=== PATIENT | female | born 1965 | race Caucasian/White ===

== ENCOUNTER 2017-03-26 21:16 | Emergency (ER) | payer BC ==
[~2017-03-26] VITALS: Ht 162.6 cm; Wt 68.9 kg
[2017-03-26 21:21] VITALS: TEMP 36.8; Ht 162.6 cm; Wt 68.9 kg
[2017-03-26] MEDS ORDERED: PRLSR20 PO (21:56)
[2017-03-26] MEDS ORDERED: ASPI-390 PO (21:56)
[2017-03-26] MEDS ORDERED: IBUP-1050 PO (21:56)
[2017-03-26] MEDS ORDERED: SODIUM CHLORIDE 0.9% 1000ML 1,000 ML IV STA (22:35)
--- NOTE | 2017-03-26 22:39 | EMERGENCY ROOM VISIT NOTE ---
History Report prepared by Adithya: Cecilio Kaplan Under the Supervision of: Dr. Jacques Camp M.D. First contact with patient: 22:27 Chief Complaint: ED VAG BLEEDING Stated Complaint: HEAVY VAGINAL BLEEDING- [facility] REFERRED History of Present Illness The patient is a 52 year old female who presents to the Emergency Room with complaints of persistent vaginal bleeding that started 13 days ago. The patient reports having to murphy to the bathroom every 30 minutes to change her pad. Associated symptoms include swelling of left foot and light headedness. The patient reports being sent here by [facility] because they were unable to draw her blood. She has a history of irregular menstrual cycles and fibroid. She states that her last period was in January. She denies experiencing a period this heavy in the past. Patient also denies abdominal pain, urinary symptoms, or any additional associated symptoms. The patient does not currently have an OBGYN. Source of History: patient Onset: 13 days ago Position: other (Vagina ) Quality: other (Bleeding) Timing: other (Persistent ) Modifying Factors (Relieving): other (None) Associated Symptoms: No abdominal pain, No urinary symptoms Note: Associated symptoms include light headedness and swelling of left foot. Review of Systems See HPI for pertinent positives & negatives. A total of 6 systems reviewed and were otherwise negative. Past Medical & Surgical Medical Problems: (1) Asthma, exercise induced (2) Gastric ulcer (3) Uterine fibroid Family History FH: diabetes mellitus FHx: cancer Social History Smoking Status: Never Smoker Alcohol Use: none Drug Use: none Marital Status: Housing Status: lives with significant other Occupation Status: employed Current/Historical Medications Scheduled Norethindrone Acetate (Aygestin), 5 MG PO DIRECTED Scheduled PRN Sdpvfae-Dvaiypmwflzre-Kuvcrrvt (Excedrin Migraine), 1 TAB PO Q12 PRN for Migraine Ibuprofen (Advil), 200-600 MG PO Q4H PRN for Pain Omeprazole (Prilosec), 20-40 MG PO DAILY PRN for PRN Allergies Coded Allergies: Penicillins (Unverified Allergy, Unknown, HIVES, 03/26/17) Physical Exam Vital Signs Date Time Temp Pulse Resp B/P Pulse Ox O2 Delivery O2 Flow Rate FiO2 03/27/17 00:45 93 16 111/75 97 03/26/17 23:20 89 18 99/58 98 Room Air 03/26/17 21:21 36.8 93 18 136/86 100 Room Air Physical Exam GENERAL: Patient is well appearing and in no acute distress. HEENT: No acute trauma, normocephalic atraumatic, mucous membranes moist, no nasal congestion, no scleral icterus. NECK: No stridor, no adenopathy, no meningismus, trachea is midline. LUNGS: No dyspnea. Clear to auscultation and equal bilaterally. No wheeze, no rhonchi. HEART: Regular rate and rhythm. No murmurs, rubs, gallops appreciated. ABDOMEN: Soft, nontender, bowel sounds positive, no masses appreciated, no peritonitis. PELVIC: Mild amount of blood in vaginal vault, mild bleeding from os, nontender adnexa, clitoris piercing noted. EXTREMITIES: Normal motion all extremities, no cyanosis, no edema. NEUROLOGIC: Alert and oriented, no acute motor or sensory deficits, no focal weakness, cranial nerves grossly intact. SKIN: No rash, no jaundice, no diaphoresis. Medical Decision & Procedures Laboratory Results 03/26/17 22:47 Test 03/26/17 22:10 03/26/17 22:40 03/26/17 22:47 Urine Test NEG (NEG) Urine Color ORANGE Urine Appearance CLOUDY (CLEAR) Urine pH 5.0 (4.5-7.5) Urine Specific [place] 1.032 (1.000-1.030) Urine Protein 1+ (NEG) Urine Glucose (UA) NEG (NEG) Urine Ketones NEG (NEG) Urine Occult Blood 3+ (NEG) Urine Nitrite NEG (NEG) Urine Bilirubin NEG (NEG) Urine Urobilinogen NEG (NEG) Urine Leukocyte Esterase TRACE (NEG) Urine WBC (Auto) 1-5 /hpf (0-5) Urine RBC (Auto) >30 /hpf (0-4) Urine Hyaline Casts (Auto) 1-5 /lpf (0-5) Urine Epithelial Cells (Auto) >30 /lpf (0-5) Urine Bacteria (Auto) NEG (NEG) Red Blood Count 3.85 M/uL (4.2-5.4) Mean Corpuscular Volume 91.7 fL (80-100) Mean Corpuscular Hemoglobin 30.1 pg (25-34) Mean Corpuscular Hemoglobin Concent 32.9 g/dl (32-36) RDW Standard Deviation 46.6 fL (36.4-46.3) RDW Coefficient of Variation 13.9 % (11.5-14.5) Mean Platelet Volume 8.8 fL (7.4-10.4) Laboratory results as reviewed by me. Medications Administered Medications (Trade) Dose Ordered Sig/Laurie Route Start Time Stop Time Status Last Admin Dose Admin Sodium Chloride (Nss 1000ml) 1,000 ml @ 999 mls/hr Q1H1M STAT IV 03/26/17 22:35 03/26/17 23:35 DC 03/26/17 23:22 999 MLS/HR Norethindrone Acetate (Aygestin Tab) 2 mg NOW STAT PO 03/26/17 23:11 03/27/17 00:02 DC 03/27/17 00:00 5 MG Norethindrone Acetate (Aygestin Tab) 10 mg NOW STAT PO 03/27/17 00:00 03/27/17 00:02 DC 03/27/17 00:29 5 MG ED Course 2228: The patient was evaluated in room B10. A complete history and physical exam was performed. 2235: Ordered Sodium Chloride 1,000 ml @ 999 mls/hr IV. 2308:I discussed the patient's case with Dr. Kimball (OBGYN). She will follow up with the patient in the outpatient office. 2311: Ordered Aygestin Tablet 2 mg PO. 2330: I performed a pelvic exam on the patient with and mechanical system technician in room. Please see physical exam notes. 2348: test is negative. 0000: Ordered Aygestin Tablet 10 mg PO. 0005: Reevaluated the patient. Discussed results and discharge instructions: She verbalized understanding and agreement. The patient is ready for discharge. She will follow up with Dr. Kimball (OBGYN). Medical Decision Differential: Menstrual Bleeding, Dysfunctional Uterine Bleeding, Infectious, Ectopic , Bleeding Dyscrasia, amongst other pathologies entertained. 52 yr old female arrives with complaint of heavy vaginal bleeding over the last ~2 weeks. Mild anemia with some orthostatic symptoms. Given IV fluids though does not require transfusion at this time. Pelvic consistent with blood in vaginal vault though no evidence overt hemorrhage. She does not require emergent surgical evaluation. She is stable and negative. No UTI symptoms. No evidence PID/TOA. No history of bleeding disorder. Reviewed with Pasteurizing Supervisor who had me start Aygestin which seems reasonable in this patient. Aware RTED if worsening or other concerns. Discussed course of Aygestin and likelihood some bleeding at end of course. She has not seen Pasteurizing Supervisor in quite some time and I have very much stressed this is important to have done as soon as possible. Aware the exam did not include pap/sti screening. Consults Time Called: [phone] Consulting Physician: Dr. Kimball (OBGYN) Returned Call: [phone] I discussed the patient's case with Dr. Kimball (OBGYN). She will follow up with the patient in the outpatient office. Impression Primary Impression: Excessive vaginal bleeding Additional Impression: Anemia Scribe Attestation The scribe's documentation has been prepared under my direction and personally reviewed by me in its entirety. I confirm that the note above accurately reflects all work, treatment, procedures, and medical decision making performed by me. Departure Information Dispostion Home / Self-Care Prescriptions Norethindrone Acetate (AYGESTIN) 5 Mg Tab 5 MG PO DIRECTED, #15 TAB Take 2 tablets twice daily for 1 day, then one table twice daily for 3 days, then 1 tablet daily for 3 days. Prov: Jacques Camp M.D. 03/26/17 Referrals Arlene Kimball MD Forms HOME CARE DOCUMENTATION FORM, IMPORTANT VISIT INFORMATION, WORK / SCHOOL INSTRUCTIONS Patient Instructions ED Bleed Irregular Vaginal, [facility] Health Problem Qualifiers Additional Impression: Anemia Anemia type: unspecified type Qualified Codes: D64.9 - Anemia, unspecified
[2017-03-26 22:58] LABS: HEMATOCRIT 35.3 % (37-47); MEAN CELL VOLUME 91.7 fL (80-100); MEAN CORPUSCULAR HEMOGLOBIN 30.1 pg (25-34); MEAN CORPUSCULAR HGB CONC 32.9 g/dl (32-36); MEAN PLATELET VOLUME 8.8 fL (7.4-10.4); PLATELET COUNT 317 K/uL (130-400); RED BLOOD COUNT 3.85 M/uL (4.2-5.4); WHITE BLOOD COUNT 9.15 K/uL (4.8-10.8)
[2017-03-26] MEDS ORDERED: [UNRECOGNIZED DRUG - CODE] PO (23:15)
[2017-03-26] MEDS: NORETHINDRONE ACETATE 5 MG TAB PO STA (23:59)
[2017-03-27] MEDS: NORETHINDRONE ACETATE 5 MG TAB PO STA
[2017-03-27] MEDS ORDERED: NORETHINDRONE ACETATE 5 MG TAB PO STA
[2017-03-27 00:42] LABS: URINE APPEARANCE CLOUDY (CLEAR); URINE BILIRUBIN NEG (NEG); URINE COLOR ORANGE; URINE EPITHELIAL CELL AUTO >30 /lpf (0-5); URINE NITRITE NEG (NEG); URINE SPECIFIC GRAVITY 1.032 (1.000-1.030); UROBILINOGEN NEG (NEG)
[2017-03-27 00:43] LABS: MANUAL MICROSCOPIC REQUIRED? NO; REVIEW REQ? NO; ZZUR CULT IF INDIC CLEAN CATCH NO
[2017-03-27 00:45] VITALS: BP 111/75; PULSE 93; O2SAT 97
== END 2017-03-27 00:45 | disposition home or self-care (01) ==
LOC: C.EDB 21:18 → EDSEX 21:18 → C.EDB 03-27 00:45
DX: N93.9 Abnormal uterine and vaginal bleeding, unspecified (principal); D64.9 Anemia, unspecified; J45.909 Unspecified asthma, uncomplicated; K25.9 Gastric ulcer, unspecified as acute or chronic, without hemorrhage or perforation; D25.9 Leiomyoma of uterus, unspecified; Z83.3 Family history of diabetes mellitus; Z80.9 Family history of malignant neoplasm, unspecified

== ENCOUNTER → 2017-04-17 | Outpatient (CLI) | payer BC ==
[~2017-04-17] MED LIST: ASPI-390 PO; IBUP-1050 PO; PRLSR20 PO; [UNRECOGNIZED DRUG - CODE] PO
== END | disposition home or self-care (01) ==
LOC: C.PATH 15:44
PROVIDERS: ATTEND Obstetrics & Gynecology
DX: N85.8 Other specified noninflammatory disorders of uterus (principal)

== ENCOUNTER 2021-11-29 13:19 | Inpatient (IN) ==
[2021-11-29] MEDS ORDERED: dexAMETHasone**PF** 10 MG/ML VIAL IV ONE (13:46)
--- NOTE | 2021-11-29 13:53 | Emergency Department Note ---
Impression & Plan Pneumonia due to 2019-nCoV, Hypoxia ED Provider Note NAME: AMY ZHU AGE: 56 SEX: F : 1965 ARRIVES VIA: Walk-In INFORMANT: Patient, ED PROVIDER(S): Sean Meyer DO CHIEF COMPLAINT: Cough HPI: The patient is a 56-year-old female who presented to emergency department for an evaluation of difficulty breathing cough and fatigue. She has noticed sinus congestion as well. The patient was having symptoms of COVID-19 since approximately November 16. She was tested and was positive at home. She is on no medications for COVID-19. She is currently not taking any steroids. She also notices a cough that is productive for brownish sputum. She denies having any specific chest pain or lower extremity swelling. She denies having any abdominal pain or vomiting. She called her family doctor and had a phone visit with the office. The patient is not vaccinated against COVID-19 ROS: See above HPI for pertinent positives & negatives. A total of 10 systems reviewed and were otherwise negative. PAST MEDICAL HISTORY: See Below PAST SURGICAL HISTORY: See Below FAMILY HISTORY: See Below SOCIAL HISTORY: See Below HOME MEDICATIONS: See Below ALLERGIES: See Below VITALS: See Below PHYSICAL EXAMINATION: GENERAL: Patient is awake alert in no acute distress patient is resting comfortably and showing no signs of anxiety EYES: The conjunctivae are clear. The pupils are round and reactive. EARS, NOSE, MOUTH AND THROAT: The nose is without any evidence of any deformity. Mucous membranes are moist. Tongue is midline. NECK: The neck is nontender and supple. RESPIRATORY: Diminished breath sounds are noted throughout with scattered rales. There is mild conversational dyspnea. CARDIOVASCULAR: Regular rate and rhythm noted there no murmurs rubs or gallops normal S1 normal S2. GASTROINTESTINAL: The abdomen is soft. Abdomen is nontender. MUSCULOSKELETAL/EXTREMITIES: There is no evidence of gross deformity full range of motion is noted in the hips and shoulders. SKIN: There is no obvious evidence of any rash. There are no petechiae, pallor or cyanosis noted. NEUROLOGIC: Patient is awake alert and oriented x3 MEDICAL DECISION MAKING: The patient is a 56-year-old female who presented to emergency department for an evaluation of difficulty breathing and cough. The patient is unvaccinated and was exposed to COVID-19. The patient had a positive Covid swab and a chest x- ray consistent with COVID-19. I discussed the patient's laboratory and radiographic studies with her. Because of her hypoxia she was treated with IV Decadron. I discussed her case with the on-call [facility]. They have agreed to evaluate the patient in the emergency department for further management and disposition. Triage Nursing notes reviewed. Prior medical records reviewed Vital Signs: reviewed and remarkable for hypoxia. Differential diagnosis: Reactive airway disease, pneumonia, pneumothorax, COPD, CHF, infections, cardiac ischemia, pulmonary embolism, musculoskeletal, gastrointestinal, as well as other pathologies. ER treatment provided: See below Diagnostics interpreted by me: ECG: EKG was obtained in the emergency department. My interpretation is normal sinus rhythm at 77 bpm. There is no ectopy. There is no acute ST segment abnormalities noted. No previous tracing was available. Cardiac Monitoring: An order was placed for continuous cardiac monitoring. The m onitor shows a rate of 87 bpm with sinus rhythm. Laboratory studies: As stated above and show below. Imaging studies: See below Consultation(s): I discussed this case with Dr. Whitaker who is on-call for [facility] hospitalist group. They will evaluate the patient in the emergency department. Past Med/Surg History Medical History Adult hypothyroidism Gastric ulcer Menorrhagia Postmenopausal bleeding 2020- post biopsy negative for malignancy Screening for lipid disorders Sinus infection Varicella Surgical History No pertinent past surgical history Family History Mother Fibrocystic breast Father Pancreatic cancer Denies family history of Ovarian cancer Myocardial infarction Breast cancer Colorectal cancer Uterus cancer Social History Smoking Status: Never smoker Hx Alcohol Use: Yes Hx Substance Use: No Preferred Language: Ugandan Communication Ability: Effective Visual Impairment: No Limitations Hearing Ability: Normal Director Of Hotel Operations Required: No marital status: Current Living Situation: Spouse Feels Safe at Home: Yes Physical Activity Frequency: 3-4 Times per Week Seatbelt Use: always Sunscreen Use: Yes Allergies Allergies Allergy/AdvReac Type Severity Reaction Status Date / Time Penicillins Allergy Unknown HIVES Verified 11/29/21 15:25 Home Meds Previous Rx's Medication Instructions Recorded levothyroxine 50 mcg tablet 50 mcg PO DAILY #90 tab 06/14/21 Results & Data (ED) Vital Signs Vital Signs - 24 hr 11/29/21 13:40 11/29/21 14:54 11/29/21 15:09 Temperature 36.8 C Temperature Source Temporal Artery Scan Pulse Rate 85 68 81 Pulse Rate [Apical] 68 Pulse Rate from SpO2 Sensor 81 Pulse Rhythm Regular Pulse Rhythm [Apical] Regular Respiratory Rate 22 18 20 Respiratory Effort / Characteristics Non-Labored Spontaneous Non-Labored Spontaneous Respiratory Depth Normal Normal Respiratory Pattern Regular Regular Blood Pressure 106/67 Blood Pressure [Left Arm] 102/61 Blood Pressure Mean 80 Blood Pressure Mean [Left Arm] 74 Blood Pressure Position [Left Arm] Semi-fowlers Pulse Oximetry 84 L 96 98 Oxygen Delivery Method Room Air Nasal Cannula Oxygen Flow Rate 2 Sepsis Recent Fever Within 48 Hours No Sepsis New/Unexplained Change in Mental Status No Sepsis Action Taken by Nursing No Action Required Oxygen Flow Rate - Titration 4 Pulse Oximetry Post Tiitration 93 11/29/21 15:30 11/29/21 15:37 11/29/21 16:00 Temperature Temperature Source Pulse Rate 82 89 Pulse Rate [Apical] Pulse Rate from SpO2 Sensor 82 89 Pulse Rhythm Pulse Rhythm [Apical] Respiratory Rate 28 H 21 Respiratory Effort / Characteristics Respiratory Depth Respiratory Pattern Blood Pressure 111/71 106/68 Blood Pressure [Left Arm] Blood Pressure Mean 84 80 Blood Pressure Mean [Left Arm] Blood Pressure Position [Left Arm] Pulse Oximetry 92 91 92 Oxygen Delivery Method Room Air Room Air Oxygen Flow Rate Sepsis Recent Fever Within 48 Hours Sepsis New/Unexplained Change in Mental Status Sepsis Action Taken by Nursing Oxygen Flow Rate - Titration Pulse Oximetry Post Tiitration 11/29/21 16:30 11/29/21 17:00 11/29/21 17:30 Temperature Temperature Source Pulse Rate 85 89 94 H Pulse Rate [Apical] Pulse Rate from SpO2 Sensor 85 88 94 H Pulse Rhythm Pulse Rhythm [Apical] Respiratory Rate 15 16 19 Respiratory Effort / Characteristics Respiratory Depth Respiratory Pattern Blood Pressure 99/59 L 94/64 L 106/72 Blood Pressure [Left Arm] Blood Pressure Mean 72 74 83 Blood Pressure Mean [Left Arm] Blood Pressure Position [Left Arm] Pulse Oximetry 93 93 92 Oxygen Delivery Method Oxygen Flow Rate Sepsis Recent Fever Within 48 Hours Sepsis New/Unexplained Change in Mental Status Sepsis Action Taken by Nursing Oxygen Flow Rate - Titration Pulse Oximetry Post Tiitration 11/29/21 18:00 11/29/21 18:30 Temperature Temperature Source Pulse Rate 93 H 87 Pulse Rate [Apical] Pulse Rate from SpO2 Sensor 93 H 88 Pulse Rhythm Pulse Rhythm [Apical] Respiratory Rate 19 21 Respiratory Effort / Characteristics Respiratory Depth Respiratory Pattern Blood Pressure 114/72 102/69 Blood Pressure [Left Arm] Blood Pressure Mean 86 80 Blood Pressure Mean [Left Arm] Blood Pressure Position [Left Arm] Pulse Oximetry 92 94 Oxygen Delivery Method Oxygen Flow Rate Sepsis Recent Fever Within 48 Hours Sepsis New/Unexplained Change in Mental Status Sepsis Action Taken by Nursing Oxygen Flow Rate - Titration Pulse Oximetry Post Tiitration Home Medications Current Medication List: was personally reviewed by me Laboratory Data Attestation: I reviewed the patient's lab results. Result diagrams: 11/29/21 13:49 11/29/21 13:49 Lab Results 11/29/21 11/29/21 11/29/21 Range/Units 13:49 13:49 13:49 WBC 11.90 H (4.8-10.8) K/uL RBC 4.30 (4.2-5.4) M/uL Hgb 13.1 (12.0-16.0) g/dL Hct 38.5 (37-47) % MCV 89.5 (80-100) fL MCH 30.5 (25-34) pg MCHC 34.0 (32-36) g/dL RDW Std Deviation 48.7 H (36.4-46.3) fL RDW Coeff of Sydnie 14.8 H (11.5-14.5) % Plt Count 389 (130-400) K/uL MPV 8.5 (7.4-10.4) fL Immature Gran % (Auto) 0.8 % Neut % (Auto) 78.7 % Lymph % (Auto) 15.4 % Boundary % (Auto) 4.7 % Eos % (Auto) 0.2 % Baso % (Auto) 0.2 % Neut # (Auto) 9.37 H (1.4-6.5) K/uL Lymph # (Auto) 1.83 (1.2-3.4) K/uL Boundary # (Auto) 0.56 (0.11-0.59) K/uL Eos # (Auto) 0.02 (0-0.5) K/uL Baso # (Auto) 0.02 (0-0.2) K/uL Immature Gran # (Auto) 0.10 H (0.00-0.02) K/uL ESR 55 H (0-30) mm/hr PT 9.7 (9.0-12.0) Seconds INR 1.0 (0.9-1.1) APTT 29.9 (21.0-31.0) Seconds PTT Ratio 1.1 Sodium (136-145) mmol/L Potassium (3.5-5.1) mmol/L Chloride (98-107) mmol/L Carbon Dioxide (21-32) mmol/L Anion Gap (3-11) BUN (7-18) mg/dl Creatinine (0.6-1.2) mg/dl Est Cr Clr Drug Dosing Est GFR ( Amer) ml/min Est GFR (Non-Af Amer) ml/min BUN/Creatinine Ratio (10-20) Glucose (70-99) mg/dl Lactate (0.4-2.0) mmol/L Calcium (8.5-10.1) mg/dl Magnesium (1.8-2.4) mg/dl Total Bilirubin (0.2-1) mg/dl AST (15-37) U/L ALT (12-78) Alkaline Phosphatase (45-117) U/L Troponin I (0-0.045) ng/ml C-Reactive Protein (0-0.29) mg/dl Total Protein (6.4-8.2) gm/dl Albumin (3.4-5.0) gm/dl Globulin (2.5-4.0) gm/dl Albumin/Globulin Ratio (0.9-2) Procalcitonin (0-0.5) ng/ml Specimen Hemolysis SARS-CoV-2 (PCR) (Negative) Influenza Type A (PCR) (Neg) Influenza Type B (PCR) (Neg) RSV (RT-PCR) (Neg) 11/29/21 11/29/21 11/29/21 Range/Units 13:49 13:58 13:58 WBC (4.8-10.8) K/uL RBC (4.2-5.4) M/uL Hgb (12.0-16.0) g/dL Hct (37-47) % MCV (80-100) fL MCH (25-34) pg MCHC (32-36) g/dL RDW Std Deviation (36.4-46.3) fL RDW Coeff of Sydnie (11.5-14.5) % Plt Count (130-400) K/uL MPV (7.4-10.4) fL Immature Gran % (Auto) % Neut % (Auto) % Lymph % (Auto) % Boundary % (Auto) % Eos % (Auto) % Baso % (Auto) % Neut # (Auto) (1.4-6.5) K/uL Lymph # (Auto) (1.2-3.4) K/uL Boundary # (Auto) (0.11-0.59) K/uL Eos # (Auto) (0-0.5) K/uL Baso # (Auto) (0-0.2) K/uL Immature Gran # (Auto) (0.00-0.02) K/uL ESR (0-30) mm/hr PT (9.0-12.0) Seconds INR (0.9-1.1) APTT (21.0-31.0) Seconds PTT Ratio Sodium 138 (136-145) mmol/L Potassium 3.4 L (3.5-5.1) mmol/L Chloride 104 (98-107) mmol/L Carbon Dioxide 29 (21-32) mmol/L Anion Gap 5.0 (3-11) BUN 9 (7-18) mg/dl Creatinine 0.59 L (0.6-1.2) mg/dl Est Cr Clr Drug Dosing Not Reportable Est GFR ( Amer) 120.4 ml/min Est GFR (Non-Af Amer) 103.9 ml/min BUN/Creatinine Ratio 14.6 (10-20) Glucose 109 H (70-99) mg/dl Lactate 1.4 (0.4-2.0) mmol/L Calcium 8.4 L (8.5-10.1) mg/dl Magnesium 2.4 (1.8-2.4) mg/dl Total Bilirubin 0.3 (0.2-1) mg/dl AST 65 H (15-37) U/L ALT 47 (12-78) Alkaline Phosphatase 113 (45-117) U/L Troponin I < 0.015 (0-0.045) ng/ml C-Reactive Protein 14.60 H (0-0.29) mg/dl Total Protein 7.0 (6.4-8.2) gm/dl Albumin 2.7 L (3.4-5.0) gm/dl Globulin 4.3 H (2.5-4.0) gm/dl Albumin/Globulin Ratio 0.6 L (0.9-2) Procalcitonin 0.08 (0-0.5) ng/ml Specimen Hemolysis SARS-CoV-2 (PCR) (Negative) Influenza Type A (PCR) (Neg) Influenza Type B (PCR) (Neg) RSV (RT-PCR) (Neg) 11/29/21 Range/Units 14:06 WBC (4.8-10.8) K/uL RBC (4.2-5.4) M/uL Hgb (12.0-16.0) g/dL Hct (37-47) % MCV (80-100) fL MCH (25-34) pg MCHC (32-36) g/dL RDW Std Deviation (36.4-46.3) fL RDW Coeff of Sydnie (11.5-14.5) % Plt Count (130-400) K/uL MPV (7.4-10.4) fL Immature Gran % (Auto) % Neut % (Auto) % Lymph % (Auto) % Boundary % (Auto) % Eos % (Auto) % Baso % (Auto) % Neut # (Auto) (1.4-6.5) K/uL Lymph # (Auto) (1.2-3.4) K/uL Boundary # (Auto) (0.11-0.59) K/uL Eos # (Auto) (0-0.5) K/uL Baso # (Auto) (0-0.2) K/uL Immature Gran # (Auto) (0.00-0.02) K/uL ESR (0-30) mm/hr PT (9.0-12.0) Seconds INR (0.9-1.1) APTT (21.0-31.0) Seconds PTT Ratio Sodium (136-145) mmol/L Potassium (3.5-5.1) mmol/L Chloride (98-107) mmol/L Carbon Dioxide (21-32) mmol/L Anion Gap (3-11) BUN (7-18) mg/dl Creatinine (0.6-1.2) mg/dl Est Cr Clr Drug Dosing Est GFR ( Amer) ml/min Est GFR (Non-Af Amer) ml/min BUN/Creatinine Ratio (10-20) Glucose (70-99) mg/dl Lactate (0.4-2.0) mmol/L Calcium (8.5-10.1) mg/dl Magnesium (1.8-2.4) mg/dl Total Bilirubin (0.2-1) mg/dl AST (15-37) U/L ALT (12-78) Alkaline Phosphatase (45-117) U/L Troponin I (0-0.045) ng/ml C-Reactive Protein (0-0.29) mg/dl Total Protein (6.4-8.2) gm/dl Albumin (3.4-5.0) gm/dl Globulin (2.5-4.0) gm/dl Albumin/Globulin Ratio (0.9-2) Procalcitonin (0-0.5) ng/ml Specimen Hemolysis SARS-CoV-2 (PCR) POSITIVE A* (Negative) Influenza Type A (PCR) Negative (Neg) Influenza Type B (PCR) Negative (Neg) RSV (RT-PCR) Negative (Neg) Administered Medications Ceftriaxone Sodium 1,000 mg/ (Dextrose) 50 mls @ 100 mls/hr IV Q24H RAEANN; Protocol Stop: 12/06/21 18:59 Last Admin: 11/29/21 18:59 Dose: 100 mls/hr Documented by: [id number] Discontinued Medications Dexamethasone (Dexamethasone Sod Inj 4 Mg/Ml Vial) Confirm Administered Dose 12 mg .ROUTE .STK-MED ONE Stop: 11/29/21 14:11 Last Admin: 11/29/21 14:17 Dose: Not Given Documented by: [id number] Dexamethasone Sodium Phosphate (DexamethasonePf 10 Mg/Ml Vial) 10 mg IV NOW ONE Stop: 11/29/21 13:47 Last Admin: 11/29/21 14:17 Dose: 10 mg Documented by: [id number] Miscellaneous (Patient's Height And/Or Weight Needed) 1 ea N/A Q2H RAEANN Stop: 12/29/21 16:14 Last Admin: 11/29/21 18:44 Dose: Not Given Documented by: [id number] Admin: 11/29/21 17:39 Dose: 1 ea Documented by: [id number] Imaging Data Radiologist's Impression: Chest X-Ray 11/29/21 13:46 XR chest 1V portable CLINICAL HISTORY: SEPSIS. Evaluate cardiopulmonary status COMPARISON STUDY: No previous studies for comparison. TECHNIQUE: 1 view of the chest FINDINGS: Single frontal view of the chest demonstrates the cardiomediastinal silhouette to be within normal limits. There is a patchy alveolar opacity seen at the left lung base characteristic of early pneumonia. There is evidence for right basilar atelectasis with elevation right hemidiaphragm. The remainder the lungs are clear. There is no evidence for pleural effusion. There is no evidence for vascular congestion. There is no acute osseous pathology. IMPRESSION: Patchy alveolar opacity at the left lung base characteristic of early pneumonia. Additional right basilar atelectasis. ACT 112: Negative or not required by law. Electronically signed by: Adithya Gray M.D. 11/29/2021 2:25 PM Discharge Plan Visit Data Chief Complaint: Shortness of Breath/Dyspnea Stated Complaint: COVID+, LOW PULSE OX, COUGH, CONGESTION ED Provider: Sean Meyer Discharge Problem: Pneumonia due to 2019-nCoV, Hypoxia Patient Disposition: Being Evaluated by Hospitalist Forms Stand Alone Forms: My [facility] Prescriptions Prescriptions: No Action levothyroxine 50 mcg tablet 50 mcg PO DAILY Qty: 90 RF: 3 Referrals Referrals: Vidya Lauren MD [Primary Care Provider] -
[2021-11-29 14:01] LABS: Basophils # (auto) 0.02 K/uL (0-0.2); Basophils % (auto) 0.2 %; Eosinophils # (auto) 0.02 K/uL (0-0.5); Eosinophils % (auto) 0.2 %; Hematocrit (blood only) 38.5 % (37-47); Hemoglobin 13.1 g/dL (12.0-16.0); Immature Granulocytes % (auto) 0.8 %; Lymphocytes # (auto) 1.83 K/uL (1.2-3.4); Lymphocytes % (auto) 15.4 %; Mean Corpuscular Hemoglobin 30.5 pg (25-34); Mean Corpuscular Volume 89.5 fL (80-100); Mean Platelet Volume 8.5 fL (7.4-10.4); Monocytes # (auto) 0.56 K/uL (0.11-0.59); Monocytes % (auto) 4.7 %; Neutrophils # (auto) 9.37 K/uL (1.4-6.5); Neutrophils % (auto) 78.7 %; Platelet Count 389 K/uL (130-400); RDW Coefficient of Variation 14.8 % (11.5-14.5); RDW Standard Deviation 48.7 fL (36.4-46.3)
[2021-11-29 14:08] LABS: Partial Thromboplastin Ratio 1.1; Partial Thromboplastin Time 29.9 Seconds (21.0-31.0); Prothrombin Time 9.7 Seconds (9.0-12.0)
[2021-11-29] MEDS ORDERED: DEXAMETHASONE SOD INJ 4 MG/ML VIAL ONE (14:10)
[2021-11-29 14:26] LABS: Alanine Aminotransferase 47 (12-78); Albumin Globulin Ratio 0.6 (0.9-2); Albumin Level 2.7 gm/dl (3.4-5.0); Alkaline Phosphatase 113 U/L (45-117); Aspartate Aminotransferase 65 U/L (15-37); BUN Creatinine Ratio 14.6 (10-20); Bilirubin,Total 0.3 mg/dl (0.2-1); Blood Urea Nitrogen 9 mg/dl (7-18); Calcium 8.4 mg/dl (8.5-10.1); Carbon Dioxide 29 mmol/L (21-32); Chloride 104 mmol/L (98-107); Est GFR (African American) 120.4 ml/min; Est GFR (Non-African American) 103.9 ml/min; Globulin 4.3 gm/dl (2.5-4.0); Glucose 109 mg/dl (70-99); Magnesium 2.4 mg/dl (1.8-2.4); Potassium 3.4 mmol/L (3.5-5.1); Sodium 138 mmol/L (136-145); Troponin I < 0.015 ng/ml (0-0.045)
--- NOTE | 2021-11-29 14:26 | XRay Report ---
XR chest 1V portable CLINICAL HISTORY: SEPSIS. Evaluate cardiopulmonary status COMPARISON STUDY: No previous studies for comparison. TECHNIQUE: 1 view of the chest FINDINGS: Single frontal view of the chest demonstrates the cardiomediastinal silhouette to be within normal li mits. There is a patchy alveolar opacity seen at the left lung base characteristic of early pneumonia . There is evidence for right basilar atelectasis with elevation right hemidiaphragm. The remainder t he lungs are clear. There is no evidence for pleural effusion. There is no evidence for vascular deangelo estion. There is no acute osseous pathology. IMPRESSION: Patchy alveolar opacity at the left lung base characteristic of early pneumonia. Addition al right basilar atelectasis. ACT 112: Negative or not required by law. Electronically signed by: Adithya Gray M.D. 11/29/2021 2:25 PM
[2021-11-29 14:54] LABS: Influenza A virus by PCR Negative (Neg); Influenza B virus by PCR Negative (Neg); RSV by PCR Negative (Neg)
[2021-11-29 15:01] LABS: SARS CoV2 RNA(COVID-19) InHosp POSITIVE (Negative)
--- NOTE | 2021-11-29 15:32 | History & Physical Report ---
Date of Service November 29, 2021 Assessment & Plan (1) Acute respiratory failure with hypoxia: Plan: Acute hypoxic respiratory failure 2/2 Covid pneumonia On 2 L nasal cannula oxygen Unvaccinated Symptom onset 11/16/2021 (day 13 at ER presentation) EKG normal sinus rhythm without acute ST changes, QTC 457 trace leukocytosis to 11.9 Creatinine less than 1 at baseline, less than 1 on admission CRP 14.60 Procalcitonin 0.08 CXR: Patchy alveolar opacity at left lung base characteristic of early pneumonia with additional right basilar atelectasis No tachycardia or signs of right heart strain on EKG. Defer CTA for PE eval unless clinically worsening, patient does have a very high CRP. Consider 1 month NOAC for prophylaxis if otherwise does clinically well and able to be discharged. Chest x-ray more consistent with early superimposed bacterial pneumonia than Covid, given late increase in symptoms with green/brown sputum production on cough will cover for secondary bacterial pneumonia with Rocephin. MRSA nares pending, if positive add coverage (2) COVID: Plan: As above (3) CAP (community acquired pneumonia): Plan: - suspected superimposed, tx as above (4) Hypothyroidism: Plan: Hypothyroidism Continue home Synthroid 50 mcg daily Plan: DVT prophylaxis: Covid dosed Lovenox Diet: Regular Disposition: Medical surgical CODE STATUS: Full code History of Present Illness Chief Complaint: Shortness of Breath Primary Care Provider: Vidya Lauren MD Renata is a 56-year-old female with a past medical history of hypothyroidism and exercise-induced asthma who presents to the emergency department for shortness of breath, cough, fatigue, and sinus congestion. She is COVID unvaccinated. She is Covid positive on ER assessment. [facility] progressive weakness and fatigue Desaturatio <90s at home with exertion Cough productive for brownish-green sputum new x2 days Diminished taste and smell which seems to be improving slightly today Hx exercise induced asthma tx with albuterol PRN ad only needs in cold weather or with exercise no fevers/chills/sweatsin the last few days +nausea, no diarrhea hx of syncope many years ago with dehydration. Medical History: Reviewed Medications: Reviewed Surgical History: Reviewed Allergies: Reviewed Social History: No tobacco product. No alcohol use. No recreational drug use. Has vaped, no use since sx onset 2 weeks ago. 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 Code Status: Full Code Allergies Allergy/AdvReac Type Severity Reaction Status Date / Time Penicillins Allergy Unknown HIVES Verified 11/29/21 15:25 Home Medications Medication Instructions Recorded Confirmed Type levothyroxine 50 mcg tablet 50 mcg PO DAILY #90 tab 06/14/21 11/29/21 Rx Past Med/Surg History Medical History Adult hypothyroidism Gastric ulcer Menorrhagia Postmenopausal bleeding 2020- post biopsy negative for malignancy Screening for lipid disorders Sinus infection Varicella Surgical History No pertinent past surgical history Family History Mother Fibrocystic breast Father Pancreatic cancer Denies family history of Ovarian cancer Myocardial infarction Breast cancer Colorectal cancer Uterus cancer Social History Smoking Status: Never smoker Hx Alcohol Use: Yes Hx Substance Use: No Preferred Language: Hungarian Communication Ability: Effective Visual Impairment: No Limitations Hearing Ability: Normal Deputy Assessor Required: No marital status: Current Living Situation: Spouse Feels Safe at Home: Yes Physical Activity Frequency: 3-4 Times per Week Seatbelt Use: always Sunscreen Use: Yes Review of Systems Review of Systems: All systems reviewed & are unremarkable except as noted in Subjective Physical Exam Physical Exam: General: A&Ox3. NAD. Cooperative. HEENT: Atraumatic, normocephalic. Pupils equal and reactive. Visual acuity and hearing grossly intact. Pulm: Diminished? Crackles in right lower lobe, otherwise moderate to good air movement without wheezes/rales. Symmetrical chest rise. No increase work of breathing. No respiratory distress. Cardiac: RRR, -mrg. Radial pulses intact and symmetrical. Abdominal: Nontender, nondistended, soft. BS present. Extremities: Warm, dry. Moving all extremities equally. Easement Worker strength, ankle dorsiflexion/plantarflexion intact and symmetrical, sensation to soft touch intact in hands and feet without asymmetry. Results & Data Results & Data ([facility]) Vital Signs (Past 12 Hours) Vital Signs Temp Pulse Pulse Resp BP BP Pulse Ox 11/29/21 14:54 68 68 18 102/61 96 11/29/21 13:40 36.8 C 85 22 106/67 84 L PG Care Time/CCT Total # of Minutes Spent Total Time Spent with Patient: Total time spent is greater than 50% in coordination of care (as documented) at patient's floor/unit and/or counseling patient: Coding Level of Care Code 89316 Initial Inpt Care Lvl 3 Diagnoses Acute respiratory failure with hypoxia J96.01 COVID U07.1 CAP (community acquired pneumonia) J18.9 Hypothyroidism E03.9
[2021-11-29] MEDS: PATIENT'S HEIGHT AND/OR WEIGHT NEEDED SCH ×2 (17:39→18:44)
--- NOTE | 2021-11-29 18:27 | Electrocardiogram Report ---
Test Reason : Blood Pressure : / mmHG Vent. Rate : 077 BPM Atrial Rate : 077 BPM P-R Int : 136 ms QRS Dur : 082 ms QT Int : 404 ms P-R-T Axes : 058 072 076 degrees QTc Int : 457 ms Normal sinus rhythm Normal ECG No previous ECGs available Confirmed by Donell Gaston ([id number]) on 11/29/2021 6:27:11 PM Referred By: ED Confirmed By:Kyle Gaston
[2021-11-29] MEDS: cefTRIAXone SODIUM 1,000 MG in DEXTROSE 5% 50 ML IV SCH (18:59)
[2021-11-29] MEDS: ENOXAPARIN INJ 40 MG/0.4 ML SYR SQ SCH (20:36)
[2021-11-30 00:18] LABS: Appearance Urine Clear (Clear); Bilirubin Urine Negative (Negative); Blood Urine Negative (Negative); Color Urine Yellow; Glucose Urine UA Negative (Negative); Ketones Urine Negative (Negative); Leukocyte Esterase Urine Negative (Negative); Nitrite Urine Negative (Negative); Protein Urine Negative (Negative); Specific Gravity Urine 1.017 (1.000-1.030); Urobilinogen Urine Negative (Negative); pH Urine 6.5 (4.5-7.5)
[2021-11-30] MEDS: ACETAMINOPHEN 325 MG TAB PO PRN ×3 (04:57→22:50)
[2021-11-30] MEDS: LEVOTHYROXINE SODIUM 50 MCG TABLET PO SCH (06:00)
[2021-11-30 07:12] LABS: Hematocrit (blood only) 38.9 % (37-47); Mean Corpuscular Hgb Conc 33.4 g/dL (32-36); Mean Corpuscular Volume 89.8 fL (80-100); Mean Platelet Volume 8.7 fL (7.4-10.4); Platelet Count 412 K/uL (130-400); RDW Coefficient of Variation 14.8 % (11.5-14.5); RDW Standard Deviation 49.2 fL (36.4-46.3); Red Blood Count 4.33 M/uL (4.2-5.4)
[2021-11-30 07:39] LABS: Basophils # (auto) 0.03 K/uL (0-0.2); Basophils % (auto) 0.5 %; Immature Granulocytes # (auto) 0.07 K/uL (0.00-0.02); Immature Granulocytes % (auto) 1.1 %; Lymphocytes # (auto) 1.08 K/uL (1.2-3.4); Lymphocytes % (auto) 16.6 %; Monocytes % (auto) 7.7 %; Neutrophils # (auto) 4.82 K/uL (1.4-6.5); Neutrophils % (auto) 74.1 %
[2021-11-30 07:40] LABS: Albumin Level 2.5 gm/dl (3.4-5.0); BUN Creatinine Ratio 21.4 (10-20); Calcium 8.6 mg/dl (8.5-10.1); Creatinine Clr Calc Pharmacy 113.3 ml/min; Est GFR (Non-African American) 110.5 ml/min; Potassium 3.9 mmol/L (3.5-5.1)
[2021-11-30 07:43] LABS: Albumin Globulin Ratio 0.6 (0.9-2); Bilirubin,Total 0.5 mg/dl (0.2-1); C Reactive Protein 12.6 mg/dl (0-0.29); Globulin 4.3 gm/dl (2.5-4.0); Total Protein 6.8 gm/dl (6.4-8.2)
[2021-11-30] MEDS: ENOXAPARIN INJ 40 MG/0.4 ML SYR SQ SCH ×2 (07:58→20:04)
[2021-11-30] MEDS: dexAMETHasone 6 MG in SYRINGE 0 ML IV SCH (07:58)
[2021-11-30] MEDS ORDERED: ALBUTEROL HFA 8 GM INHALER INH PRN (09:06)
[2021-11-30] MEDS: cefTRIAXone SODIUM 1,000 MG in DEXTROSE 5% 50 ML IV SCH (18:34)
--- NOTE | 2021-11-30 18:59 | Hospitalist Progress Note ---
Date of Service November 30, 2021 Assessment & Plan (1) Acute respiratory failure with hypoxia: Plan: Due to Covid pneumoniacontinue dexamethasone, supplemental oxygen, supportive care. Currently on empiric ceftriaxonecontinue to follow. No role for remdesivir, no indication for tocilizumab/baricitinib at this time. (2) COVID: Plan: As above (3) CAP (community acquired pneumonia): Plan: - suspected superimposed, tx as abovecontinue to follow (4) Hypothyroidism: Plan: Hypothyroidism Continue home Synthroid 50 mcg daily Plan: DVT prophylaxis: Covid dosed Lovenox Diet: Regular Disposition: Medical surgical CODE STATUS: Full code Admission and Anticipated Discharge Date Admission Date: November 29, 2021 Subjective Feeling a degree of shortness of breathespecially whenever she is trying to move around at all. At rest with oxygen on she is feeling reasonably okay. Is 2 weeks into her illness tomorrow. Smell and taste are coming back, appetite coming back. Just weak fatigued and dyspneic. Review of Systems Review of Systems: All systems reviewed & are unremarkable except as noted in HPI & below Physical Exam Physical Exam: In general she is awake and alert pleasant, fatigued appearing no distress. HEENT normocephalic atraumatic mucous membranes moist. Lungs are diminished throughout but overall surprisingly clear no rales rhonchi or wheezes good effort no accessory muscle use. Currently on 4 L nasal cannula. Extremities show no cyanosis clubbing or edema neuro shows no focal deficits. Results & Data Results & Data ([facility]) Vital Signs (Past 12 Hours) Vital Signs Temp Pulse Resp BP Pulse Ox 11/30/21 15:25 98.2 F 78 20 93/61 L 90 11/30/21 08:16 98.1 F 72 20 105/70 94 PG Care Time/CCT Total # of Minutes Spent Total Time Spent with Patient: Total time spent is greater than 50% in coordination of care (as documented) at patient's floor/unit and/or counseling patient: Coding Level of Care Code 61942 Subseq Hosp Care Lvl 3 Diagnoses Acute respiratory failure with hypoxia J96.01 COVID U07.1 CAP (community acquired pneumonia) J18.9 Hypothyroidism E03.9
[2021-12-01] MEDS ORDERED: SODIUM CHLORIDE 0.65% NA SOLN 45 ML (OCEAN) PRN (05:23)
[2021-12-01] MEDS: ACETAMINOPHEN 325 MG TAB PO PRN ×3 (05:28→23:14)
[2021-12-01] MEDS: LEVOTHYROXINE SODIUM 50 MCG TABLET PO SCH (05:30)
[2021-12-01 07:16] LABS: Hematocrit (blood only) 38.6 % (37-47); Hemoglobin 12.7 g/dL (12.0-16.0); Mean Corpuscular Hemoglobin 30.2 pg (25-34); Mean Corpuscular Hgb Conc 32.9 g/dL (32-36); Mean Corpuscular Volume 91.7 fL (80-100); Mean Platelet Volume 9.1 fL (7.4-10.4); Platelet Count 499 K/uL (130-400); RDW Coefficient of Variation 15.1 % (11.5-14.5); Red Blood Count 4.21 M/uL (4.2-5.4); White Blood Count 17.91 K/uL (4.8-10.8)
[2021-12-01 07:33] LABS: Basophils # (auto) 0.02 K/uL (0-0.2); Basophils % (auto) 0.1 %; Immature Granulocytes # (auto) 0.16 K/uL (0.00-0.02); Immature Granulocytes % (auto) 0.9 %; Lymphocytes # (auto) 1.69 K/uL (1.2-3.4); Lymphocytes % (auto) 9.4 %; Monocytes # (auto) 1.14 K/uL (0.11-0.59); Monocytes % (auto) 6.4 %; Neutrophils % (auto) 83.2 %
[2021-12-01 07:41] LABS: BUN Creatinine Ratio 34.3 (10-20); C Reactive Protein 5.61 mg/dl (0-0.29); Calcium 8.5 mg/dl (8.5-10.1); Creatinine Clr Calc Pharmacy 97.4 ml/min; Est GFR (African American) 121.8 ml/min; Est GFR (Non-African American) 105.1 ml/min; Potassium 3.8 mmol/L (3.5-5.1)
[2021-12-01] MEDS: dexAMETHasone 6 MG in SYRINGE 0 ML IV SCH (08:47)
[2021-12-01] MEDS: ENOXAPARIN INJ 40 MG/0.4 ML SYR SQ SCH ×2 (08:48→20:11)
[2021-12-01] MEDS: cefTRIAXone SODIUM 1,000 MG in DEXTROSE 5% 50 ML IV SCH (18:13)
--- NOTE | 2021-12-01 18:46 | Hospitalist Progress Note ---
Date of Service December 01, 2021 Assessment & Plan (1) Acute respiratory failure with hypoxia: Plan: Due to Covid pneumoniacontinue dexamethasone, supplemental oxygen, supportive care. No role for remdesivir, no indication for tocilizumab/baricitinib at this time. Proning (2) COVID: Plan: As above (3) CAP (community acquired pneumonia): Plan: - suspected superimposed, continue ceftriaxone (particularly given focal infiltrate noted on x-ray) to follow (4) Hypothyroidism: Plan: Hypothyroidism Continue home Synthroid 50 mcg daily Plan: DVT prophylaxis: Covid dosed Lovenox Diet: Regular Disposition: Medical surgical CODE STATUS: Full code Admission and Anticipated Discharge Date Admission Date: November 29, 2021 Subjective Generally feeling about the samemaybe a little bit better dyspnea at rest, but still significant dyspnea on exertion. Did spend most of the night laying on her belly. No other new complaints. Spent an extensive amount of time discussing Covid, her secondary bacterial pneumonia, reviewed chest x-ray with patient, reviewed current outline of care. Answered all questions the best my ability. Review of Systems Review of Systems: All systems reviewed & are unremarkable except as noted in HPI & below Physical Exam Physical Exam: In general she is awake and alert pleasant no distress. HEENT normocephalic atraumatic mucous membranes moist. Lungs show left base rales far greater than right, no accessory muscle use good effort. Skin shows no rashes no pallor or icterus. Neuro without focal deficits. Results & Data Results & Data ([facility]) Vital Signs (Past 12 Hours) Vital Signs Temp Pulse Resp BP Pulse Ox 12/01/21 16:18 98.2 F 60 20 108/70 93 12/01/21 12:02 97.9 F 79 20 113/73 89 L 12/01/21 07:00 98.1 F 66 20 108/69 93 PG Care Time/CCT Total # of Minutes Spent Total Time Spent with Patient: Total time spent is greater than 50% in coordination of care (as documented) at patient's floor/unit and/or counseling patient: Coding Level of Care Code 93460 Subseq Hosp Care Lvl 3 Diagnoses Acute respiratory failure with hypoxia J96.01 COVID U07.1 CAP (community acquired pneumonia) J18.9 Hypothyroidism E03.9
[2021-12-02] MEDS: LEVOTHYROXINE SODIUM 50 MCG TABLET PO SCH (05:11)
[2021-12-02] MEDS: ENOXAPARIN INJ 40 MG/0.4 ML SYR SQ SCH ×2 (08:56→20:12)
[2021-12-02] MEDS: dexAMETHasone 6 MG in SYRINGE 0 ML IV SCH (08:57)
[2021-12-02 10:38] LABS: Hematocrit (blood only) 38.3 % (37-47); Hemoglobin 12.6 g/dL (12.0-16.0); Mean Corpuscular Hemoglobin 30.2 pg (25-34); Mean Corpuscular Hgb Conc 32.9 g/dL (32-36); Mean Corpuscular Volume 91.8 fL (80-100); Mean Platelet Volume 8.7 fL (7.4-10.4); Platelet Count 489 K/uL (130-400); RDW Coefficient of Variation 14.6 % (11.5-14.5); RDW Standard Deviation 49.4 fL (36.4-46.3); Red Blood Count 4.17 M/uL (4.2-5.4); White Blood Count 18.05 K/uL (4.8-10.8)
[2021-12-02 10:57] LABS: Basophils # (auto) 0.02 K/uL (0-0.2); Basophils % (auto) 0.1 %; Immature Granulocytes % (auto) 1.1 %; Lymphocytes # (auto) 1.21 K/uL (1.2-3.4); Lymphocytes % (auto) 6.7 %; Monocytes # (auto) 1.14 K/uL (0.11-0.59); Monocytes % (auto) 6.3 %; Neutrophils # (auto) 15.48 K/uL (1.4-6.5); Neutrophils % (auto) 85.8 %
[2021-12-02 11:08] LABS: Albumin Globulin Ratio 0.6 (0.9-2); Albumin Level 2.5 gm/dl (3.4-5.0); BUN Creatinine Ratio 28.5 (10-20); Bilirubin,Total 0.2 mg/dl (0.2-1); C Reactive Protein 2.1 mg/dl (0-0.29); Calcium 8.5 mg/dl (8.5-10.1); Creatinine Clr Calc Pharmacy 95.8 ml/min; Est GFR (African American) 121.1 ml/min; Est GFR (Non-African American) 104.5 ml/min; Globulin 4.1 gm/dl (2.5-4.0); Potassium 3.2 mmol/L (3.5-5.1); Total Protein 6.6 gm/dl (6.4-8.2)
[2021-12-02] MEDS ORDERED: POTASSIUM CHLORIDE CRTAB 20 MEQ TABCR PO STA (11:35)
[2021-12-02] MEDS ORDERED: FUROSEMIDE INJ 20 MG/2 ML VIAL IV ONE (11:35)
[2021-12-02] MEDS: ACETAMINOPHEN 325 MG TAB PO PRN (12:21)
[2021-12-02] MEDS ORDERED: POTASSIUM CHLORIDE CRTAB 20 MEQ TABCR PO ONE (16:00)
[2021-12-02] MEDS: cefTRIAXone SODIUM 1,000 MG in DEXTROSE 5% 50 ML IV SCH (18:20)
--- NOTE | 2021-12-02 19:25 | Hospitalist Progress Note ---
Date of Service December 02, 2021 Assessment & Plan (1) Acute respiratory failure with hypoxia: Plan: Due to Covid pneumoniacontinue dexamethasone, supplemental oxygen, supportive care. No role for remdesivir, no indication for tocilizumab/baricitinib at this time. Proning, Lasix (Lasix seems to have helped a good bit) (2) COVID: Plan: As above (3) CAP (community acquired pneumonia): Plan: - suspected superimposed, continue ceftriaxone (particularly given focal infiltrate noted on x-ray), continue to follow (4) Hypothyroidism: Plan: Hypothyroidism Continue home Synthroid 50 mcg daily Plan: DVT prophylaxis: Covid dosed Lovenox Diet: Regular Disposition:stable on medical, eventually goal is home - may need supplemental O2. CODE STATUS: Full code Admission and Anticipated Discharge Date Admission Date: November 29, 2021 Subjective [place] almost instantly better after Lasix. Voided quite a bit. Still needing oxygen, but far less dyspneic with exertioninstead of bedside commode was actually able to walk to the bathroom. Still requiring 4 L but feels much better. Otherwise no new complaints. Review of Systems Review of Systems: All systems reviewed & are unremarkable except as noted in HPI & below Physical Exam Physical Exam: In general she is awake and alert pleasant no distress. Smiling more talkative more animated. HEENT normocephalic atraumatic mucous membranes are moist. Lungs are left greater than right basilar rales otherwise clear no rhonchi no wheezes good effort no accessory muscle use. 91% on 4 L whenever I see her. Neuro shows cranial nerves II through XII be grossly intact gross motor and sensory intact. Results & Data Results & Data ([facility]) Vital Signs (Past 12 Hours) Vital Signs Temp Pulse Resp BP Pulse Ox 12/02/21 15:31 97.5 F L 66 20 104/69 91 12/02/21 11:39 98.1 F 81 20 112/74 94 12/02/21 07:38 84 18 91 PG Care Time/CCT Total # of Minutes Spent Total Time Spent with Patient: Total time spent is greater than 50% in coordination of care (as documented) at patient's floor/unit and/or counseling patient: Coding Level of Care Code 83805 Subseq Hosp Care Lvl 3 Diagnoses Acute respiratory failure with hypoxia J96.01 COVID U07.1 CAP (community acquired pneumonia) J18.9 Hypothyroidism E03.9
[2021-12-03] MEDS: LEVOTHYROXINE SODIUM 50 MCG TABLET PO SCH (05:19)
[2021-12-03 06:34] LABS: Basophils # (auto) 0.01 K/uL (0-0.2); Basophils % (auto) 0.1 %; Eosinophils # (auto) 0.01 K/uL (0-0.5); Eosinophils % (auto) 0.1 %; Hematocrit (blood only) 39.3 % (37-47); Hemoglobin 12.6 g/dL (12.0-16.0); Immature Granulocytes # (auto) 0.12 K/uL (0.00-0.02); Immature Granulocytes % (auto) 1.1 %; Lymphocytes # (auto) 1.49 K/uL (1.2-3.4); Lymphocytes % (auto) 13.2 %; Mean Corpuscular Hemoglobin 29.6 pg (25-34); Mean Corpuscular Hgb Conc 32.1 g/dL (32-36); Mean Corpuscular Volume 92.5 fL (80-100); Mean Platelet Volume 9.1 fL (7.4-10.4); Monocytes # (auto) 1.21 K/uL (0.11-0.59); Monocytes % (auto) 10.7 %; Neutrophils # (auto) 8.45 K/uL (1.4-6.5); Neutrophils % (auto) 74.8 %; Platelet Count 568 K/uL (130-400); RDW Coefficient of Variation 14.6 % (11.5-14.5); RDW Standard Deviation 49.4 fL (36.4-46.3); Red Blood Count 4.25 M/uL (4.2-5.4); White Blood Count 11.29 K/uL (4.8-10.8)
[2021-12-03 07:16] LABS: BUN Creatinine Ratio 31.4 (10-20); Calcium 8.7 mg/dl (8.5-10.1); Est GFR (African American) 123.2 ml/min; Est GFR (Non-African American) 106.3 ml/min; Potassium 4.2 mmol/L (3.5-5.1)
[2021-12-03] MEDS: ENOXAPARIN INJ 40 MG/0.4 ML SYR SQ SCH ×2 (07:37→20:01)
[2021-12-03] MEDS: ACETAMINOPHEN 325 MG TAB PO PRN (07:38)
[2021-12-03] MEDS: FUROSEMIDE INJ 20 MG/2 ML VIAL IV SCH (09:40)
[2021-12-03] MEDS: dexAMETHasone 6 MG in SYRINGE 0 ML IV SCH (09:40)
[2021-12-03] MEDS: cefTRIAXone SODIUM 1,000 MG in DEXTROSE 5% 50 ML IV SCH (18:02)
--- NOTE | 2021-12-03 18:34 | Hospitalist Progress Note ---
Date of Service December 03, 2021 Assessment & Plan (1) Acute respiratory failure with hypoxia: Plan: 2nd Covid pneumonia +/- mild pulm edema. IMPROVING. Continue dexamethasone, supplemental oxygen, supportive care. Wean FiO2 as tolerated. No role for Remdesivir as she was 7-10 days out from illness onset at time of admission. Did not meet criteria for tocilizumab/baricitinib. (2) COVID: Plan: COVID-19 pneumonia - improving. day #5 dexamethasone 6mg IV daily. see #1 above. (3) CAP (community acquired pneumonia): Plan: possible. remains on rocephin, day #5. can likely finish course with PO doxy starting tomorrow. (4) Hypothyroidism: Plan: TSH 05/2021 wnl Continue home Synthroid 50 mcg daily (5) Candidiasis of mouth and esophagus: Plan: DVT proph - lovenox 40mg BID cont IV lasix daily with AM labs add nystatin for possible thrush/candidiasis of mouth daughter - left message for her on [employer] this evening home next 1-2 days? Admission and Anticipated Discharge Date Admission Date: November 29, 2021 Subjective patient feeling much better just a small amount of REEDER with walking to bathroom, etc during the visit I cut her O2 from 3 L to 2 L - o2 sats stayed about 92% on such eating robustly now no other new complaints Review of Systems Review of Systems: gen - no fevers or chills CV - no chest pain, no orthopnea pulm - cough, some sputum but minimal GI - no N/V Physical Exam Physical Exam: gen - NAD, looks good mouth - ?thrush plaques with mild posterior erythema neck - no JVD heart - RRR, s1 s2 lungs - mild rales RUL, left base; no wheeze or increased work of breathing abd - soft NT ND BS+ ext - no edema, pulses 2+ b/l Results & Data Results & Data ([facility]) Vital Signs (Past 12 Hours) Vital Signs Temp Pulse Resp BP Pulse Ox 12/03/21 16:04 36.8 C 67 18 94/59 L 95 12/03/21 07:59 36.7 C 59 L 18 105/68 94 Laboratory Results Laboratory Results - last 24 hr 12/03/21 12/03/21 05:50 05:50 WBC 11.29 H RBC 4.25 Hgb 12.6 Hct 39.3 MCV 92.5 MCH 29.6 MCHC 32.1 RDW Std Deviation 49.4 H RDW Coeff of Sydnie 14.6 H Plt Count 568 H MPV 9.1 Immature Gran % (Auto) 1.1 Neut % (Auto) 74.8 Lymph % (Auto) 13.2 [place] % (Auto) 10.7 Eos % (Auto) 0.1 Baso % (Auto) 0.1 Neut # (Auto) 8.45 H Lymph # (Auto) 1.49 [place] # (Auto) 1.21 H Eos # (Auto) 0.01 Baso # (Auto) 0.01 Immature Gran # (Auto) 0.12 H Sodium 138 Potassium 4.2 D Chloride 103 Carbon Dioxide 29 Anion Gap 6.0 BUN 17 Creatinine 0.55 L Est Cr Clr Drug Dosing 101.0 Est GFR ( Amer) 123.2 Est GFR (Non-Af Amer) 106.3 BUN/Creatinine Ratio 31.4 H Glucose 86 Calcium 8.7 PG Care Time/CCT Total # of Minutes Spent Total Time Spent with Patient: Total time spent is greater than 50% in coordination of care (as documented) at patient's floor/unit and/or counseling patient: Coding Level of Care Code 96922 Subseq Hosp Care Lvl 2 Diagnoses Acute respiratory failure with hypoxia J96.01 COVID U07.1 CAP (community acquired pneumonia) J18.9 Hypothyroidism E03.9 Candidiasis of mouth and esophagus B37.81; B37.0
[2021-12-04] MEDS: LEVOTHYROXINE SODIUM 50 MCG TABLET PO SCH (05:29)
[2021-12-04 06:30] LABS: Hematocrit (blood only) 38.9 % (37-47); Hemoglobin 12.8 g/dL (12.0-16.0); Mean Corpuscular Hemoglobin 30.3 pg (25-34); Mean Corpuscular Hgb Conc 32.9 g/dL (32-36); Platelet Count 564 K/uL (130-400); RDW Coefficient of Variation 14.3 % (11.5-14.5); RDW Standard Deviation 48.4 fL (36.4-46.3); Red Blood Count 4.23 M/uL (4.2-5.4); White Blood Count 12.56 K/uL (4.8-10.8)
[2021-12-04 06:59] LABS: D Dimer < 190 ug/L FEU (0-500)
[2021-12-04 07:06] LABS: BUN Creatinine Ratio 35.3 (10-20); Calcium 8.9 mg/dl (8.5-10.1); Creatinine Clr Calc Pharmacy 95.8 ml/min; Est GFR (African American) 121.1 ml/min; Est GFR (Non-African American) 104.5 ml/min; Magnesium 2.4 mg/dl (1.8-2.4); Potassium 4.2 mmol/L (3.5-5.1)
[2021-12-04] MEDS: ENOXAPARIN INJ 40 MG/0.4 ML SYR SQ SCH (07:29)
[2021-12-04] MEDS: FUROSEMIDE INJ 20 MG/2 ML VIAL IV SCH (07:29)
[2021-12-04] MEDS: dexAMETHasone 6 MG in SYRINGE 0 ML IV SCH (07:30)
[2021-12-04] MEDS: ACETAMINOPHEN 325 MG TAB PO PRN (12:15)
--- NOTE | 2021-12-04 14:22 | Discharge Summary ---
Date of Service date of admission - November 29, 2021 date of discharge - December 04, 2021 Admission HPI Per Admitting Provider Renata is a 56-year-old female with a past medical history of hypothyroidism and exercise-induced asthma who presents to the emergency department for shortness of breath, cough, fatigue, and sinus congestion. She is COVID unvaccinated. She is Covid positive on ER assessment. +Test [facility] progressive weakness and fatigue Desaturatio <90s at home with exertion Cough productive for brownish-green sputum new x2 days Diminished taste and smell which seems to be improving slightly today Hx exercise induced asthma tx with albuterol PRN ad only needs in cold weather or with exercise no fevers/chills/sweatsin the last few days +nausea, no diarrhea hx of syncope many years ago with dehydration. Medical History: Reviewed Medications: Reviewed Surgical History: Reviewed Allergies: Reviewed Social History: No tobacco product. No alcohol use. No recreational drug use. Has vaped, no use since sx onset 2 weeks ago. 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 Code Status: Full Code Principal Diagnosis Acute hypoxic respiratory failure 2nd to COVID-19 pneumonia Discharge Exam gen - NAD, looks good mouth - ?thrush plaques with mild posterior erythema neck - no JVD heart - RRR, s1 s2, no murmur lungs - mild rales RUL, left base; no wheeze or increased work of breathing abd - soft NT ND BS+ ext - no edema, pulses 2+ b/l Discharge Data Allergies Allergy/AdvReac Type Severity Reaction Status Date / Time Penicillins Allergy Unknown HIVES Verified 11/29/21 15:25 Consultations Physical therapy Procedures Performed 2-step ambulatory oxygen test - 1 liter NC O2 needed with ambulation Ordered Studies Chest X-Ray 11/29/21 13:46 XR chest 1V portable CLINICAL HISTORY: SEPSIS. Evaluate cardiopulmonary status COMPARISON STUDY: No previous studies for comparison. TECHNIQUE: 1 view of the chest FINDINGS: Single frontal view of the chest demonstrates the cardiomediastinal silhouette to be within normal limits. There is a patchy alveolar opacity seen at the left lung base characteristic of early pneumonia. There is evidence for right basilar atelectasis with elevation right hemidiaphragm. The remainder the lungs are clear. There is no evidence for pleural effusion. There is no evidence for vascular congestion. There is no acute osseous pathology. IMPRESSION: Patchy alveolar opacity at the left lung base characteristic of early pneumonia. Additional right basilar atelectasis. ACT 112: Negative or not required by law. Electronically signed by: Adithya Gray M.D. 11/29/2021 2:25 PM Hospital Course (1) Acute respiratory failure with hypoxia: 2nd Covid pneumonia +/- mild pulmonary edema. IMPROVED with IV dexamethasone, supplemental oxygen, diuresis, and supportive care. She was treated for bacterial superinfection as she had a significant focal LLL infiltrate on chest x-ray. Peak FiO2 requirement was 4 liters of NC O2. She did not receive Remdesivir as she was 7-10 days out from illness onset at time of admission. Did not meet criteria for tocilizumab/baricitinib. She will complete 4 more days of oral dexamethasone 6mg daily post-discharge. Albuterol can be used on a PRN basis. She was encouraged to continue pulmonary toilet at home. Due to nice response to diuresis with lasix during the visit I recommended 2 days of low-dose oral lasix following discharge. On day of discharge a 2-step ambulatory O2 test showed she needed 1 liter of NC O2 with ambulation. Finally, I recommended outpatient follow-up with [facility] to ensure a good recovery from her moderate COVID-19 pneumonia. (2) COVID: COVID-19 pneumonia - see #1 above. Received 6 days of IV dexamethasone 6mg daily while hospitalized. Will complete 4 more days of oral steroid at home. (3) CAP (community acquired pneumonia): Suspected, given the focal LLL infiltrate on CXR. s/p 5 days of rocephin while hospitalized. Will complete 2 days of oral cefdinir at home. (4) Hypothyroidism: TSH 05/2021 wnl Continue home Synthroid 50 mcg daily (5) Candidiasis of mouth and esophagus: nystatin solution 5cc qid x 7 days swish/spit (6) DVT prophylaxis: Received lovenox 40mg BID during her stay. At discharge I gave her the option of using Xarelto 10mg daily for 1 month vs no chemical DVT proph. She opted to take the Xarelto for 30 days. Total Time Total Time Spent Total Time Spent (In Minutes): 45 Discharge Plan Discharge Items Patient Disposition: Home - Self-Care Reason For Visit: COVID-19 Pneumonia Discharge Diagnosis: COVID-19 Pneumonia - improving Activity: As commented below Activity Comment: gradually increase your activities over the next 1-2 weeks Sexual Activity: Wait until after follow-up appointment Exercise/Sports: Wait until after follow-up appointment Driving/Machine Use: Resume 3 days after discharge Non-emergency contact: Primary Care Provider and Specialist Call non-emergency contact if: you have any medication questions, your symptoms worsen and you have a fever Follow-up/Referrals: Vidya Lauren MD [Primary Care Provider] - 12/14/21 10:30 am Kathryn Jean-Baptiste MD [Physician] - ([facility] WILL CALL YOU TO SET UP AN APPOINTMENT FOR 4 WEEKS.) Diet: Regular Addtl Attending Provider Instructions: Mrs Yousuf Bocanegra, You were hospitalized for COVID-19 pneumonia. During your stay you were treated with steroids, antibiotics, oxygen, and other supportive care measures. You have improved nicely during your stay. Recommendations - 1. Dexamethasone steroid - take 6mg once daily for 4 more days starting 12/05/21. Take with food. This is for your COVID-19 pneumonia. 2. Oxygen - you do not need to use any oxygen at rest or with sleep. however, please use 1 liter of oxygen with activity/ambulation, especially when you leave your home. Do not let anyone smoke in your home due to risk of fire. You will likely need the oxygen for a week or two during your recovery. 3. Albuterol - use 2 puffs of albuterol via the spacer device every 4 hours as needed for cough/congestion/wheeze/shortness of breath. 4. For DVT blood clot prevention - take Xarelto 10mg once daily x 30 days, first dose on 12/05/21. 5. For prevention of stomach irritation while on steroids, Xarelto, etc - take omeprazole 40mg once daily for 30 days. 6. For yeast infection in mouth - take nystatin solution, 5ml four times daily for 7 days. Swish and spit. 7. On 12/05/21 and 12/06/21 ONLY - take furosemide water pill 20mg each morning. At the same time take the potassium pill as well. After those 2 days you do not need to take these any longer. 8. Antibiotics - take cefdinir 300mg twice daily for 4 doses. Take your first dose TONIGHT, 12/04/21. 9. You are likely not contagious to others at this time. You do not need to isolate your self at your home. However, I would plan to spend the next few days at home resting and recovering, focusing on good nutrition, sleep, etc. 10. For sleep - [id number] melatonin 5mg at bedtime as needed. 11. You will likely have some shortness of breath for a period of time, perhaps a couple of weeks or longer. This is normal as you recover from the illness. You will also be more tired than normal. It is ok to rest/nap as needed. Be sure to listen to your body and "don't over do it" during your recovery. 12. Check your oxygen on your finger with a pulse oximeter 2-3 times each day. If your oxygen levels are 90% or more these are acceptable readings. If your oxygen levels are consistently less than 90% please seek medical attention. 13. Try to get a flu shot in the next 3-4 weeks. 14. Follow-up - see separate section. Return to [facility] if - * you have recurrent fevers over 100 degrees * you have worsening shortness of breath or chest pain * you have oxygen levels on your finger less than 90% consistently * you have bleeding from any location as noted below * any other concerns Best wishes for a speedy recovery! Dr Wyatt Addtl Floor Coverings Installer Provider Instructions: Blood Thinner (Anticoagulation) Medication Instructions: For reasons not entirely understood COVID-19 can "thicken" the blood in some individuals which increases the chances of developing a DVT blood clot while recovering from COVID. Thus, we are sending you home on a blood thinner called XARELTO. Your dose is a low-dose 10mg once daily. The treatment course is 30 days starting on 12/05/21. * You should take your medication exactly as directed. * Never skip a dose. * Never take a double dose. If you miss a dose, take it as soon as you remember. Call your Primary Care doctor if you experience any of the following: * Swelling or Pain in your leg * Sudden, continuous pain deep in a muscle * Pain that worsens when you are active or when you stand still for a long time * Chest Pain * Sudden Shortness of Breath * Rapid or pounding heart beat * Fainting * Dizziness * Cough with blood or bloody sputum * Sweating more than normal * Bruises * Heavy or uncontrolled bleeding * Blood in your urine, stool or vomit * Black or tarry stools * Heavy nose bleeding Caring for Your Self at Home: * Avoid sitting, standing or lying down for long periods without moving your legs and feet * When traveling by car, stop to get out and move around at least once every 3 hours * On long airplane, train or bus rides, get up and move around when possible * If you can't get up, wiggle your toes and tighten your calves to keep your blood moving Pending Studies at Discharge: No Stand-Alone Forms: My [facility] [employer], Smoking Cessation Medications and DC Order Prescriptions: New albuterol sulfate [Ventolin HFA] 90 mcg/actuation Hfa Aerosol Inhaler 2 puff inhalation Q4H PRN (Reason: cough/wheeze/shortness of breath) Qty: 1 R F: 0 furosemide [Lasix] 20 mg tablet 20 mg PO QAM Qty: 2 RF: 0 potassium chloride 20 mEq tablet extended release 20 meq PO DAILY Qty: 2 RF: 0 dexamethasone 6 mg tablet 6 mg PO DAILY 4 Days Qty: 4 RF: 0 Xarelto 10 mg tablet 10 mg PO DAILY 30 Days Qty: 30 RF: 0 omeprazole 40 mg capsule,delayed release(DR/EC) 40 mg PO DAILY 30 Days Qty: 30 RF: 0 nystatin 100,000 unit/mL suspension 5 ml PO QID 7 Days Qty: 200 RF: 0 (DME) Oxygen Home Liters Per Minute See Rx Instructions .ROUTE .MEDSUPPLY Qty: 1 RF: 0 Continued levothyroxine 50 mcg tablet 50 mcg PO DAILY Qty: 90 RF: 3 Discharge Orders: Discharge Order (Routine); Ordered 12/04/21 Ordered By: Colton Kaba/Other Patient Handouts: 2019-nCoV, COVID-19 Prevention, COVID-19 Home Care, Proning COVID-19, COVID-19 and the Flu What's ..., Nicci Infection: Thrush Admission Data Admit Date/Time: 11/29/21 16:09 Attending Provider: Colton Wyatt Admit Provider: Jose M Whitaker Primary Care Provider: Vidya Lauren V. Other Providers: Jose M Whitaker Other Interventions: Discharge Summary Assessment (RN) Last Done: 12/04/21 15:08 Coding Level of Care Code D/C DAY MANAGEMENT >30 MINS Diagnoses Acute respiratory failure with hypoxia J96.01 COVID U07.1 CAP (community acquired pneumonia) J18.9 Hypothyroidism E03.9 Candidiasis of mouth and esophagus B37.81; B37.0 DVT prophylaxis Z29.9
== END 2021-12-04 16:54 | disposition home or self-care (01) | DRG 177 ==
LOC: ED 13:19 → EDINP 16:09 → SUATTDRO 16:09 → 2W 19:43